=== PATIENT | male | born 1980 | race Caucasian/White ===

== ENCOUNTER → 2018-11-08 | Outpatient (CLI) | payer OTHER ==
--- NOTE | 2018-11-08 10:52 | RADIOLOGY REPORT (SQ) ---
EXAM DESCRIPTION: MRI RT LOWER JOINT WITHOUT COMPLETED DATE/TIME: 11/08/2018 9:11 am REASON FOR STUDY: RIGHT KNEE PAIN (M25.561) M25.561 PAIN IN RIGHT KNEE COMPARISON: None. TECHNIQUE: Rightknee images acquired and stored on PACS. Multiplanar images include fat sensitive s equences as T1, water sensitive sequences as FST2 or STIR, cartilage sensitive sequences as FSPD, and gradient echo sequences. LIMITATIONS: Metallic artifact from remote prior ACL repair FINDINGS: JOINT AND BURSAE: No effusion. No Rodriguez's cyst BONE CORTEX AND MARROW: No alteration of signal to suggest marrow replacement. No worrisome bone lesi ons. No occult fracture. ACL: Old ACL reconstruction with tunneling in the distal femur and proximal tibia. The ACL graft is torn, with anterior subluxation of the tibia with respect to the distal femur on sagittal image 12. PCL: Intact. MCL: Intact. No periligamentous edema or fluid. LCL: Intact. No periligamentous edema or fluid. MEDIAL MENISCUS: A 3 x 1.8 x 1.4 cm multi septated ganglion cyst is present along the anterior aspect , anterior horn medial meniscus. This is best shown on axial image 13, sagittal image 14, and sorto l image 6. The midbody and posterior horn medial meniscus is diffusely fragmented and small. LATERAL MENISCUS: No tears. No abnormal signal. MEDIAL COMPARTMENT: High-grade chondromalacia with moderate osteophyte formation. No bone bruises or reactive marrow edema. LATERAL COMPARTMENT: Cartilage preserved. No bone bruises or reactive marrow edema. No osteophytes. PATELLA: High-grade midline chondromalacia. No subchondral cysts. Medial and lateral retinacula intac t. EXTENSOR MECHANISM: Intact. Quadriceps and patella tendons normal. SOFT TISSUES: Adjacent muscles and subcutaneous tissues normal. Normal flow void in popliteal artery and vein. OTHER: No other significant finding. 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 3 x 1.8 x 1.4 cm multi septated ganglion cyst along the anterior aspect, anterior horn medial meniscu s. Remainder of the medial meniscus is diffusely small and fragmented. TECHNICAL DOCUMENTATION: JOB ID: [id number]- All Rights Reserved Reading location - IP/workstation name: [facility]
== END ==
LOC: RAD 08:18
PROVIDERS: ATTEND Physician Assistant Medical
DX: M25.561 Pain in right knee (principal)